=== PATIENT | female | born 1955 | race Caucasian/White ===

== ENCOUNTER → 2016-09-08 | Day surgery (SDC) | payer BC ==
[2016-09-01 14:32] VITALS: BMI 34.0
[~2016-09-08] VITALS: Ht 157.5 cm; Wt 85.9 kg
[~2016-09-08] MED LIST: CHOL100010 PO; LIDOCAINE HCL 2% 2 ML VIAL (20MG/ML) ONE; MIDAZOLAM HCL 1 MG/ML 2ML VIAL ONE; ONDANSETRON INJ 2 MG/ML 2 ML VIAL ONE; PROPOFOL IV EMULSION 10 MG/ML 20 ML VIAL IV ONE; SODIUM CHLORIDE 0.9% 500ML 500 ML IV ONE; [UNRECOGNIZED DRUG - CODE] PO
[2016-09-08 10:00] VITALS: Ht 157.5 cm; Wt 85.9 kg
--- NOTE | 2016-09-08 10:37 | Endo History and Physical ---
History & Physical Date of Service: Sep 08, 2016. Chief Complaint: screening for colon cancer Referring Physician: Dr. Vaibhav Barber History of Present Illness 61 yo CF who presents for screening colonoscopy. Past Surgical History Hx Cardiac Surgery: No Hx Internal Defibrillator: No Hx Pacemaker: No Hx Abdominal Surgery: No Hx of Implantable Prosthesis: No Hx Post-Op Nausea and Vomiting: No Hx Cancer Surgery: No Hx Thoracic Surgery: No Hx Orthopedic: No Hx Urinary Tract Surgery: Yes (CYSTOSCOPY IN OFFICE) Family History None Social History Smoking Status: Never Smoker Hx Substance Use: No Hx Alcohol Use: No Allergies Coded Allergies: Ampicillin (Verified Allergy, Unknown, RASH, 09/01/16) [place] (Verified Allergy, Unknown, RASH, 09/01/16) Current Medications Reported Home Medications Medications Dose Route/Sig Max Daily Dose Days Date Category Vitamin D (Cholecalciferol) 1,000 Unit Tab 1 Tab PO QAM 09/01/16 Reported Phenazopyridine HCl 200 Mg Tab 1 Tab PO TID PRN 09/01/16 Reported Vital Signs Weight (Kilograms): 85.91 Height (Feet): 5 Height (Inches): 2 Date Time Temp Pulse Resp B/P Pulse Ox O2 Delivery O2 Flow Rate FiO2 09/08/16 10:07 36.6 85 20 148/84 100 Room Air Physical Exam General Appearance: WD/WN, no apparent distress Respiratory/Chest: Auscultation: breath sounds normal Cardiovascular: Heart Auscultation: RRR Abdomen: Bowel Sounds: normal Inspection & Palpation: soft, non-distended, no tenderness, guarding & rebound Assessment and Plan Assessment: 61 yo CF who presents for screening colonoscopy. Plan: Proceed with colonoscopy.
--- NOTE | 2016-09-08 11:00 | GI REPORT ---
Procedure Date: 09/08/2016 10:33 AM Procedure: Colonoscopy Indications: Screening for colorectal malignant neoplasm Medicines: Monitored Anesthesia Care Complications: No immediate complications. Estimated Blood Loss: Estimated blood loss: none. Procedure: Pre-Anesthesia Assessment: - Prior to the procedure, a History and Physical was performed, and patient medications and allergies were reviewed. The patient's tolerance of previous anesthesia was also reviewed. The risks and benefits of the procedure and the sedation options and risks were discussed with the patient. All questions were answered, and informed consent was obtained. Prior Anticoagulants: The patient has taken no previous anticoagulant or antiplatelet agents. ASA Grade Assessment: II - A patient with mild systemic disease. After reviewing the risks and benefits, the patient was deemed in satisfactory condition to undergo the procedure. After I obtained informed consent, the scope was passed under direct vision. Throughout the procedure, the patient's blood pressure, pulse, and oxygen saturations were monitored continuously. The scope was introduced through the anus and advanced to the terminal ileum. The colonoscopy was performed without difficulty. The patient tolerated the procedure well. The quality of the bowel preparation was good. The terminal ileum, ileocecal valve, appendiceal orifice, and rectum were photographed. Findings: A 5 mm polyp was found in the ascending colon. The polyp was sessile. The polyp was removed with a hot snare. Resection and retrieval were complete. Non-bleeding internal hemorrhoids were found during retroflexion. The hemorrhoids were small. Impression: - One 5 mm polyp in the ascending colon, removed with a hot snare. Resected and retrieved. - Non-bleeding internal hemorrhoids. Recommendation: - Resume previous diet. - Continue present medications. - Repeat colonoscopy for surveillance based on pathology results. - Return to primary care physician as previously scheduled. Nicko Berman DO 09/08/2016 11:00:29 AM This report has been signed electronically. Note Initiated On: 09/08/2016 10:33 AM I attest to the content of the Intraoperative Record and orders documented therein, exceptions below
--- NOTE | 2016-09-08 11:01 | Discharge Instructions ---
Endoscopy Patient Instructions Date / Procedure(s) Performed Sep 08, 2016. Colonoscopy Allergy Information Coded Allergies: Ampicillin (Verified Allergy, Unknown, RASH, 09/01/16) [place] (Verified Allergy, Unknown, RASH, 09/01/16) Discharge Date / Findings Sep 08, 2016. Colon polyp Internal hemorrhoids Medication Instructions OK to resume all medications today as prescribed. Reported Home Medications Medications Dose Route/Sig Max Daily Dose Days Date Category Vitamin D (Cholecalciferol) 1,000 Unit Tab 1 Tab PO QAM 09/01/16 Reported Phenazopyridine HCl 200 Mg Tab 1 Tab PO TID PRN 09/01/16 Reported Provider Instructions Activity Restrictions - No exercising or heavy lifting for 24 hours. - Do not drink alcohol the day of the procedure. - Do not drive a car or operate machinery until the day after the procedure. - Do not make any important decisions or sign important papers in 24 hours after the procedure. Following Day: - Return to full activity which may include returning to work/school. Diet Start your diet with liquids and light foods (jello, soup, juice, toast). Then eat your usual diet if not nauseated. Treatment For Common After Affects For mild abdominal pain, bloating, or excessive gas: - Rest - Eat lightly - Lie on right side Follow-Up Information Follow-up with Dr. Vaibhav Barber as scheduled Anesthesia Information What You Should Know You have had a procedure that required some medicine to reduce anxiety and discomfort. This treatment is called moderate sedation. After receiving the treatment, you may be sleepy, but you will be able to breathe on your own. The effects of the treatment may last for several hours. Follow these instructions along with Activity/Diet recommendations noted above: * Do NOT do anything where dizziness or clumsiness would be dangerous. * Rest quietly at home today, then you can be up and about tomorrow. * Have a responsible person stay with you the rest of today. * You may have had an I.V. today. If so, you may take the dressing off later today. Recommendations Call your doctor if: * Trouble breathing * Continuous vomiting for more than 24 hours * Temperature above 101 degrees * Severe abdominal pain or bloating * Pain not relieved by pain medicine ordered * There is increased drainage or redness from any incision * A large amount of rectal bleeding greater than 2-3 tablespoons. (If you had a polyp/s removed or have hemorrhoids, a small amount of blood - from the rectum is to be expected.) * You have any unanswered questions or concerns. IN THE EVENT OF A SERIOUS EMERGENCY, GO TO THE NEAREST EMERGENCY ROOM Your discharge instructions were prepared by provider Nicko Berman. Patient Instructions Signature Page Jodee Hawthorne Patient (or Guardian) Signature/Date: I have read and understand the instructions given to me by my caregivers. Caregiver/RN/Doctor Signature/Date: The above-named patient and/or guardian has received patient instructions on this date. + Original Patient Signature Page (only) stays with chart. Please make copy for patient.
[2016-09-08 11:45] VITALS: BP 134/74; PULSE 67; O2SAT 97
--- NOTE | 2016-09-08 15:24 | Anesthesiology Progress Note ---
Anesthesia Post Op Note Date & Time Sep 08, 2016 at 15:24 Vital Signs Pain Intensity: 0 Vital Signs Past 12 Hours Date Time Temp Pulse Resp B/P Pulse Ox O2 Delivery O2 Flow Rate FiO2 09/08/16 11:45 67 18 134/74 97 Room Air 09/08/16 11:33 71 18 132/81 99 Room Air 09/08/16 11:23 68 16 131/73 99 Room Air 09/08/16 11:13 73 16 137/66 99 Room Air 09/08/16 11:03 74 16 123/68 99 Room Air 09/08/16 10:07 36.6 85 20 148/84 100 Room Air Notes Mental Status: alert / awake / arousable, participated in evaluation Pt Amnestic to Procedure: Yes Nausea / Vomiting: adequately controlled Pain: adequately controlled Airway Patency, RR, SpO2: stable & adequate BP & HR: stable & adequate Hydration State: stable & adequate Anesthetic Complications: no major complications apparent
== END | disposition home or self-care (01) ==
LOC: C.GI 09:49
PROVIDERS: ATTEND Internal Medicine
DX: Z12.11 Encounter for screening for malignant neoplasm of colon (principal); D12.2 Benign neoplasm of ascending colon; K64.8 Other hemorrhoids; Z88.1 Allergy status to other antibiotic agents

== ENCOUNTER → 2017-01-08 | Outpatient (CLI) | payer BC ==
[~2017-01-08] MED LIST changes: -LIDOCAINE HCL 2% 2 ML VIAL (20MG/ML) ONE; -MIDAZOLAM HCL 1 MG/ML 2ML VIAL ONE; -ONDANSETRON INJ 2 MG/ML 2 ML VIAL ONE; -PROPOFOL IV EMULSION 10 MG/ML 20 ML VIAL IV ONE; -SODIUM CHLORIDE 0.9% 500ML 500 ML IV ONE
--- NOTE | 2017-01-08 12:30 | MAMMOGRAPHY REPORT ---
BILATERAL DIGITAL SCREENING MAMMOGRAM WITH CAD: 01/08/2017 CLINICAL HISTORY: Routine screening. TECHNIQUE: Current study was also evaluated with a Computer Aided Detection (CAD) system. Bilateral CC and MLO views were obtained. COMPARISON: Comparison is made to exams dated: 01/08/2016 mammogram, 01/07/2015 mammogram, 01/04/2014 m ammogram, 12/09/2012 mammogram, 12/08/2011 mammogram, and 12/03/2010 mammogram - [facility]. BREAST COMPOSITION: There are scattered areas of fibroglandular density in both breasts. FINDINGS: No suspicious masses, calcifications, or areas of architectural distortion are noted in ei ther breast. There has been no significant interval change compared to prior exams. IMPRESSION: ACR BI-RADS CATEGORY 1: NEGATIVE There is no mammographic evidence of malignancy. A 1 year screening mammogram is recommended. The pa tient will receive written notification of the results. Approximately 10% of breast cancers are not detected with mammography. A negative mammographic report should not delay biopsy if a clinically suggestive mass is present. Beulah Marie M.D. ah/:01/08/2017 09:01:00 Process Helper: Shante Rodriguez RT(R)(M), [facility] letter sent: Normal 1/2 BI-RADS Code: ACR BI-RADS Category 1: Negative
== END | disposition home or self-care (01) ==
LOC: C.MAMM 08:41
PROVIDERS: ATTEND Internal Medicine
DX: Z12.31 Encounter for screening mammogram for malignant neoplasm of breast (principal)

== ENCOUNTER → 2017-02-03 | Outpatient (CLI) | payer BC | END | disposition home or self-care (01) | LOC: C.LABBC 09:08 | PROVIDERS: ATTEND Internal Medicine | DX: Z11.59 Encounter for screening for other viral diseases (principal) ==

== ENCOUNTER → 2017-04-05 | Outpatient (CLI) | payer BC ==
--- NOTE | 2017-04-05 10:58 | DIAGNOSTIC IMAGING REPORT ---
CHEST 2 VIEWS ROUTINE HISTORY: Cough. COMPARISON: Chest 12/31/2014. FINDINGS: Small linear densities seen within the lingula and a small hazy appearance to the base of the left lower lobe. The right lung is clear. No pleural effusions. No pneumothorax. The heart is normal in size. IMPRESSION: 1. Small focal hazy airspace opacity within the base of the left lower lobe. This likely represents a pneumonia. One month chest x-ray follow-up is recommended to ensure resolution. 2. A few nonspecific linear densities within the lingula which could represent atelectasis. Electronically signed by: Zi Peck M.D. 04/05/2017 10:57 AM Dictated Date/Time: 04/05/2017 10:55 AM
== END | disposition home or self-care (01) ==
LOC: C.RAD1850 10:23
PROVIDERS: ATTEND Physician Assistant Medical
DX: R05 Cough (principal); R91.8 Other nonspecific abnormal finding of lung field

== ENCOUNTER → 2017-05-03 | Outpatient (CLI) | payer BC ==
--- NOTE | 2017-05-03 11:18 | DIAGNOSTIC IMAGING REPORT ---
CHEST 2 VIEWS ROUTINE CLINICAL HISTORY: Left lower lobe pneumonia pneumonitis COMPARISON STUDY: 04/05/2017 FINDINGS: Left basilar parenchymal infiltrative change has resolved. Minimal chronic like atelectasis left lower lobe region. Lungs otherwise are clear. No evidence for cardiac enlargement. IMPRESSION: Minimal atelectasis left base. Interval resolution of the left basilar parenchymal infiltrate. The above report was generated using voice recognition software. It may contain grammatical, syntax or spelling errors. Electronically signed by: Odin Villaseñor M.D. 05/03/2017 11:16 AM Dictated Date/Time: 05/03/2017 11:15 AM
== END | disposition home or self-care (01) ==
LOC: C.RADBC 10:53
PROVIDERS: ATTEND Physician Assistant Medical
DX: J18.1 Lobar pneumonia, unspecified organism (principal)

== ENCOUNTER → 2017-05-19 | Outpatient (CLI) | payer BC | END | disposition home or self-care (01) | LOC: C.PAPS 14:29 | PROVIDERS: ATTEND Obstetrics & Gynecology | DX: R87.619 Unspecified abnormal cytological findings in specimens from cervix uteri (principal) ==

== ENCOUNTER → 2018-01-26 | Outpatient (CLI) | payer OTHER ==
[~2018-01-26] MED LIST changes: +PHEN-571 PO; -[UNRECOGNIZED DRUG - CODE] PO
--- NOTE | 2018-01-27 08:11 | MAMMOGRAPHY REPORT ---
UNILATERAL LEFT DIGITAL DIAGNOSTIC MAMMOGRAM TOMOSYNTHESIS AND LEFT ULTRASOUND: 01/26/2018 CLINICAL HISTORY: 62-year-old woman called back from screening mammography for a 7 mm nodular asymmet ry in the superior, middle one third of the left breast on the MLO view thought to project laterally on the cc view. TECHNIQUE: Spot compression left CC and MLO tomosynthesis images were obtained. Additional full-fiel d left CC and MLO tomosynthesis images were obtained. COMPARISON: Comparison is made to exams dated: 01/14/2018 mammogram, 01/08/2017 mammogram, 01/08/2016 ma mmogram, 01/07/2015 mammogram, 01/04/2014 mammogram, and 12/09/2012 mammogram - [facility]ter. Ultrasound of was performed. BREAST COMPOSITION: There are scattered areas of fibroglandular density in left breast. FINDINGS: The supplemental spot compression tomosynthesis images of the left breast demonstrate an ir regular 7 mm asymmetry in the lateral, middle one third of the left breast on the CC spot compression views. There is a partially circumscribed 7 mm mass in the superior, middle one third of the left b reast on the MLO view, which correlates with the initial screening finding. Further evaluation with ultrasound was performed. Targeted ultrasound was performed in the lateral left breast with particular attention to the upper o uter quadrant. In the 1:30 axis, 5 cm from the nipple, there is an oval parallel circumscribed hypoe choic cystic-appearing mass with posterior acoustic enhancement, measuring 7.1 x 3.3 x 6.4 mm. It wa s unclear if this could correlate with the mammographic asymmetry and therefore a skin BB was placed overlying this suspected cyst and repeat full-field left CC and MLO views were performed. The BB mar ker appears to align with the mammographic mass in question. Additionally, on this repeat CC view, t he asymmetry seen in the lateral breast now appears more circumscribed. Nevertheless, further charac terization with ultrasound-guided cyst aspiration and post-aspiration mammography is recommended to e nsure complete resolution. IMPRESSION: ACR BI-RADS CATEGORY 4: SUSPICIOUS, ULTRASOUND ACR BI-RADS CATEGORY 4: SUSPICIOUS 1. The 7 mm asymmetry in the superior/upper outer middle one third of the left breast is thought to correlate with a suspected cyst seen in the 1:30 left breast on ultrasound. Definitive characterizat ion with ultrasound-guided cyst aspiration and post-aspiration mammography is recommended. These results and recommendations were discussed with the patient at the time of the exam. She tenta tively scheduled the procedure prior to leaving our department. Approximately 10% of breast cancers are not detected with mammography. A negative mammographic report should not delay biopsy if a clinically suggestive mass is present. Claudette Jimenez M.D. ay/:01/26/2018 12:28:00 [employer]: RT Payal(R)(M), [facility]; [facility] letter sent: Abnormal 4/5 OVERALL STUDY BIRADS: 4 Suspicious abnormality
== END | disposition home or self-care (01) ==
LOC: C.MAMM 11:10
PROVIDERS: ATTEND Internal Medicine
DX: N64.89 Other specified disorders of breast (principal)

== ENCOUNTER → 2018-02-04 | Outpatient (CLI) | payer OTHER ==
[2018-02-04 14:12] LABS: BASO % 0.7 %; BASO ABS # 0.04 K/uL (0-0.2); EOS % 1.4 %; EOS ABS # 0.08 K/uL (0-0.5); HEMATOCRIT 41.6 % (37-47); HEMOGLOBIN 13.7 g/dL (12.0-16.0); IG# 0.01 K/uL (0.00-0.02); LYMPH % 26.3 %; LYMPH ABS # 1.52 K/uL (1.2-3.4); MEAN CORPUSCULAR HEMOGLOBIN 27.7 pg (25-34); MEAN CORPUSCULAR HGB CONC 32.9 g/dl (32-36); MEAN PLATELET VOLUME 11.2 fL (7.4-10.4); MONO % 7.3 %; MONO ABS # 0.42 K/uL (0.11-0.59); NEUT % 64.1 %; PLATELET COUNT 288 K/uL (130-400); RED CELL DISTRIBUTION WIDTH CV 13.7 % (11.5-14.5); RED CELL DISTRIBUTION WIDTH SD 41.5 fL (36.4-46.3); WHITE BLOOD COUNT 5.77 K/uL (4.8-10.8)
[2018-02-04 14:32] LABS: ALKALINE PHOSPHATASE 92 U/L (45-117); ALT/SGPT 38 U/L (12-78); AST/SGOT 27 U/L (15-37); BLOOD UREA NITROGEN 15 mg/dl (7-18); CALCIUM 8.7 mg/dl (8.5-10.1); CARBON DIOXIDE 23 mmol/L (21-32); CHOLESTEROL 160 mg/dl (0-200); CREATININE 0.67 mg/dl (0.60-1.20); GLUCOSE 87 mg/dl (70-99); LDL CHOLESTEROL CALCULATED 93 mg/dl; POTASSIUM 3.8 mmol/L (3.5-5.1); SODIUM 140 mmol/L (136-145); TOTAL PROTEIN 7.4 gm/dl (6.4-8.2)
== END | disposition home or self-care (01) ==
LOC: C.LABBC 09:47
PROVIDERS: ATTEND Internal Medicine
DX: Z00.00 Encounter for general adult medical examination without abnormal findings (principal); N30.10 Interstitial cystitis (chronic) without hematuria; R92.8 Other abnormal and inconclusive findings on diagnostic imaging of breast; D12.6 Benign neoplasm of colon, unspecified; R03.0 Elevated blood-pressure reading, without diagnosis of hypertension